=== PATIENT | male | born 1960 | race Caucasian/White ===

== ENCOUNTER 2024-05-24 11:27 | Outpatient (CLI) | payer MEDICARE, MEDICAID ==
[~2024-05-24 11:27] MED LIST: ASPI-1009 PO; COR3.125T PO; ESOM40CA PO; GABA-338 PO; GLYB2.5T59 PO; LISI-222 PO; METF-1157 PO; NITR0.4T51 SL; SIMV-42 PO
[2024-05-24] MEDS ORDERED: GLIP5TAB23 PO (11:45)
[2024-05-24] MEDS ORDERED: PANT20TA18 PO (11:45)
[2024-05-24] MEDS ORDERED: BUSP5TAB3 PO (11:48)
[2024-05-24 12:20] LABS: BASOPHILS # (AUTO) 0.1 X10'3 (0-0.2); EOSINOPHILS # (AUTO) 0.5 X10'3 (0-0.9); EOSINOPHILS % (AUTO) 8.3 % (0-6); LYMPHOCYTES # (AUTO) 2.4 X10'3 (1.1-4.8); LYMPHOCYTES % (AUTO) 42.1 % (21-51); MEAN CORPUSCULAR HEMOGLOBIN 29.2 PG (27.0-31.0); MEAN CORPUSCULAR HGB CONC 33.1 g/dL (33.0-36.5); MEAN CORPUSCULAR VOLUME 88.2 FL (78-98); MEAN PLATELET VOLUME 8.2 FL (7.4-10.4); MONOCYTES # (AUTO) 0.5 X10'3 (0-0.9); MONOCYTES % (AUTO) 8.8 % (2-12); NEUTROPHILS # (AUTO) 2.3 X10'3 (1.8-7.7); NEUTROPHILS % (AUTO) 39.8 % (42-75); PRE OP HEMATOCRIT 41.3 % (42.0-52.0); PRE OP HEMOGLOBIN 13.7 g/dL (14.0-17.9); PRE OP PLATELET COUNT 295 X10'3 (140-440); PRE OP WHITE BLOOD COUNT 5.7 10'3 (4.8-10.8); RED BLOOD COUNT 4.68 X10'6 (4.70-6.10); RED CELL DISTRIBUTION WIDTH 13.2 % (11.5-14.5)
[2024-05-24 12:36] LABS: ALBUMIN 3.7 G/DL (3.4-5.0); ALBUMIN/GLOBULIN RATIO 1.3 (1.1-1.5); ALKALINE PHOSPHATASE 188 IU/L (46-116); BLOOD UREA NITROGEN 27 MG/DL (7-18); BUN/CREATININE RATIO 18.9 (10.0-20.0); CALCIUM 8.9 MG/DL (8.5-10.1); CHLORIDE 103 MMOL/L (99-107); CREATININE 1.43 MG/DL (0.60-1.10); PRE OP ALT 41 U/L (30-65); PRE OP ANION GAP 8 (8-16); PRE OP AST 27 U/L (10-37); PRE OP BILIRUB, TOTAL 0.3 MG/DL (0.0-1.0); PRE OP POTASSIUM 4.4 MMOL/L (3.4-5.1); PRE OP SODIUM 137 MMOL/L (135-145); TOTAL CARBON DIOXIDE 26.4 MMOL/L (24-32); TOTAL PROTEIN 6.6 G/DL (6.4-8.2); eGFR 50 ML/MIN
[2024-05-24 12:38] LABS: PRE OP GLUCOSE 560 MG/DL (70-104)
[2024-05-24 14:11] LABS: HEMOGLOBIN A1C > 12.0 % (4.5-6.2)
== END 2024-05-24 23:59 | disposition home or self-care (01) ==
LOC: LAB 11:27 → EDSTATUS 05-27 22:00
PROVIDERS: ATTEND Orthopaedic Surgery Hand Surgery
DX: I44.7 Left bundle-branch block, unspecified (principal); M72.0 Palmar fascial fibromatosis [Dupuytren]; M79.5 Residual foreign body in soft tissue; I45.89 Other specified conduction disorders
CPT/HCPCS: 36415; 80053; 83036; 85025; 93005; J7120